=== PATIENT | female | born 1985 | race Caucasian/White ===

== ENCOUNTER 2018-12-03 15:21 | Outpatient (REF) | payer OTHER, SELFPAY ==
--- NOTE | 2018-12-03 14:15 | PAPFT_PTH ---
PATIENT: Sofía Blunt LOC: [facility] U#:[id number] AGE/SX: 33/F ROOM: RE12/03/[address]: Nicole Fink V : 1985 BED: DIS: 12/03/2018 SPEC #: [id number] RECD: 12/04/18 13:02 STATUS: MIKEY REPinky #: [id number] KAMRAN: 12/03/18 14:[address]: Nicole Fink V DEPT: [facility] Cytology RECD BY: Imani Gregory Tissues: 1 - CX/ENDOCX FOR PAP SMEARS Procedures: PAP THIN PREP/UVM Screening HPV DNA PROBE Comments: [id number]
[2018-12-03 21:41] LABS: TSH (W/Ref FT4) 2.39 uIU/mL (0.358-3.74)
== END 2018-12-03 15:41 ==
LOC: LBN 15:21
PROVIDERS: PCP Family Medicine; Visit Provider Family Medicine
DX: Z00.00 Encounter for general adult medical examination without abnormal findings (principal); I95.9 Hypotension, unspecified; Z12.4 Encounter for screening for malignant neoplasm of cervix; Z11.51 Encounter for screening for human papillomavirus (HPV); Z01.419 Encounter for gynecological examination (general) (routine) without abnormal findings
CPT/HCPCS: 88142; 84443; 87624

== ENCOUNTER 2020-06-10 20:00 | Outpatient (REF) | payer OTHER, SELFPAY ==
[2020-06-12 08:04] LABS: Chlamydia Result Negative (Negative); GC Result Negative (Negative)
== END 2020-06-10 20:20 ==
LOC: LBN 20:00
PROVIDERS: PCP Family Medicine; Visit Provider Obstetrics & Gynecology
DX: Z11.3 Encounter for screening for infections with a predominantly sexual mode of transmission (principal)
CPT/HCPCS: 87491; 87591

== ENCOUNTER 2020-07-12 04:35 | Outpatient (CLI) | payer OTHER, SELFPAY ==
[2020-07-14 11:03] LABS: Almond IgE <0.35 kU/L; Brazil Nut IgE <0.35 kU/L; Cashew IgE <0.35 kU/L; Hazelnut-Food IgE <0.35 kU/L; Peanut IgE <0.10 kU/L (<0.70); Pecan-Food IgE <0.35 kU/L; Walnut-Food IgE <0.35 kU/L
== END 2020-07-12 04:55 ==
PROVIDERS: PCP Family Medicine; Visit Provider Otolaryngology Otolaryngology/Facial Plastic Surgery
DX: E73.9 Lactose intolerance, unspecified (principal); Z91.018 Allergy to other foods; T78.1XXA Other adverse food reactions, not elsewhere classified, initial encounter
CPT/HCPCS: 36415; 86003

== ENCOUNTER 2020-08-02 03:01 | Outpatient (CLI) | payer OTHER, SELFPAY ==
[2020-08-04 19:02] LABS: Alternaria Tenuis IgE <0.35 kU/L; Aspergillus Fumigatus IgE <0.35 kU/L; Bermuda Grass IgE <0.35 kU/L; Cat Epithelium IgE <0.35 kU/L; Cladosporium IgE <0.35 kU/L; Cocklebur IgE <0.35 kU/L; Cockroach IgE <0.35 kU/L; Cottonwood IgE <0.35 kU/L; D Farinae IgE 1.22 kU/L; D Pteronyssinus IgE 1.54 kU/L; Dog Dander IgE <0.35 kU/L; Eastern Sycamore IgE <0.35 kU/L; Elm IgE <0.35 kU/L; Epicoccum purpurascens IgE <0.35 kU/L; Giant Ragweed IgE <0.35 kU/L; Lamb's Quarter IgE <0.35 kU/L; Oak IgE <0.35 kU/L; Penicillium chrysogenum IgE <0.35 kU/L; Red Sorrel IgE <0.35 kU/L; Rough Pigweed IgE <0.35 kU/L; Short Ragweed IgE <0.35 kU/L; Silver Birch IgE <0.35 kU/L; Stemphyllium IgE <0.35 kU/L; Timothy Grass IgE <0.35 kU/L; Walnut Tree IgE <0.35 kU/L; Wormwood IgE <0.35 kU/L
[2020-08-08 17:35] LABS: CLASS 0; Cedar Red IgE <0.10 kU/L (<0.35); Fusarium oxysporum/vasinfectum <0.35 kU/L (<0.35); Rhodotorula IgE <0.35 kU/L (<0.35)
== END 2020-08-02 03:02 | disposition home or self-care (01) ==
LOC: LBO 03:01
PROVIDERS: PCP Family Medicine; Visit Provider Otolaryngology Otolaryngology/Facial Plastic Surgery
DX: J30.9 Allergic rhinitis, unspecified (principal); Z01.82 Encounter for allergy testing
CPT/HCPCS: 36415; 86003

== ENCOUNTER 2021-07-19 01:56 | Outpatient (CLI) | payer OTHER, SELFPAY ==
[2021-07-19 08:07] LABS: Abs Immature Grans 0.01 10^3/uL (0.0-0.06); Absolute Basophil Count 0.06 10^3/uL (0.0-0.2); Absolute Eosinophil Count 0.07 10^3/uL (0.0-0.7); Absolute Lymphocyte Count 2.01 10^3/uL (1.2-3.4); Absolute Monocyte Count 0.41 10^3/uL (0.1-0.8); Absolute Neutrophil Count 3.77 10^3/uL (1.2-6.7); Basophils % 0.9; Eosinophils % 1.1; HCT 39.6 % (36.0-46.0); HGB 12.7 g/dL (11.2-15.7); Immature Grans % 0.2; Lymphocytes % 31.8; MCH 30.8 pg (27.0-33.0); MCHC 32.1 % (32.0-36.0); MCV 95.9 fL (80-95); MPV 9.6 fL (8.0-11.0); Monocytes % 6.5; Neutrophils % 59.5; Nucleated RBC 0 %; Platelet Count 215 10^3/uL (130-400); RBC 4.13 10^6/uL (3.93-5.22); RDW 12.6 % (11.7-14.6); RDW-SD 44.6 fL; WBC 6.33 10^3/uL (4.4-10.8)
[2021-07-19 09:15] LABS: Source Nasal/Nares
[2021-07-19 12:22] LABS: COVID-19 PCR Negative (Negative)
== END 2021-07-19 01:57 | disposition home or self-care (01) ==
LOC: LBO 01:56
PROVIDERS: PCP Family Medicine; Visit Provider Obstetrics & Gynecology
DX: Z01.818 Encounter for other preprocedural examination (principal)
CPT/HCPCS: 36415; 86850; 86900; 86901; 87635; 85025

== ENCOUNTER 2021-07-21 11:17 | Day surgery (SDC) | payer OTHER, SELFPAY ==
[2021-07-21] VITALS (9 sets, daily range): BP systolic 81–104; BP diastolic 36–75; PULSE 48–76; RESP 13–18; TEMP 36.2–36.6; O2SAT 96–100; BMI 23.8
--- NOTE | 2021-07-21 11:55 | W.ANESPRE ---
General Info Date of Service Date Performed: 07/21/21 Height: 5 ft 2 in Weight: 59 kg Body Mass Index (BMI): 23.8 Surgical Procedure: Operation Date: 07/21/21 13:10 Proposed Procedure Side Surgeon p Salpingectomy Laparoscopic & IUD Removal Bilateral Daisha Stout DO Meds Allergies and Home Medications Allergies Allergy/AdvReac Type Severity Reaction Status Date / Time No Known Allergies Allergy Unverified 07/21/21 11:42 Home Medication Medication Instructions Recorded levonorgestrel 20 mcg/24 hours (7 1 device INTRAUTERINE ONCE 07/13/20 yrs) 52 mg intrauterine device (Mirena) fiber 1 cap PO DAILY 07/20/21 Current Visit Medications: Current Medications Generic Name Dose Route Start Last Admin Trade Name Freq PRN Reason Stop Dose Admin Ringer's Solution 1,000 mls @ 125 mls/hr 07/21/21 06:00 IV 08/19/21 23:59 INFUSION AYES IV Miscellaneous Supplies 1 each 07/21/21 06:00 Iv Access IV 08/19/21 23:59 DIRECTED AYSE Sodium Chloride 0 ml 07/21/21 06:00 Normal Saline Flush 10 Ml Syr IV 08/19/21 23:59 PRN PRN Sodium Chloride 0 ml 07/21/21 06:00 Normal Saline 10 Ml Vial IJ 08/19/21 23:59 DIRECTED PRN Sterile Water 0 ml 07/21/21 06:00 Water,Injection,Sterile 10 Ml Vial IJ 08/19/21 23:59 DIRECTED PRN PFSH Active Problems Active Problems: Problem Status Onset Code Contraceptive management Z30.9 Allergic rhinitis due to allergen J30.9 Encounter for management of intrauterine contraceptive device (IUD) Z30.431 Encounter for insertion of mirena IUD Z30.430 Tobacco Smoking/Tobacco Use Status: Current-Occasional Tobacco Type: cigarettes Alcohol Alcohol Intake: never Substance Use Substance use: Never Substance use type: does not use Vital Signs and Lab Results Vital Signs Most Recent Vital Signs in EMR: Most Recent Vital Signs Temp Pulse Resp BP Pulse Ox 36.6 C 63 16 91/36 L 98 07/21/21 11:33 07/21/21 11:33 07/21/21 11:33 07/21/21 11:33 07/21/21 11:33 Point of Care Results Point of Care Results: POC- Test(urine) Negative 07/21/21 11:45 Lab Results Blood Type / Crossmatch: Patient ABO/Rh A Positive 07/19/21 Antibody Screen NEGATIVE 07/19/21 Complete Blood Count: White Blood Count 6.33 10^3/uL (4.4-10.8) 07/19/21 07:56 07/19/21 Red Blood Count 4.13 10^6/uL (3.93-5.22) 07/19/21 07:56 07/19/21 Hemoglobin 12.7 g/dL (11.2-15.7) 07/19/21 07:56 07/19/21 Hematocrit 39.6 % (36.0-46.0) 07/19/21 07:56 07/19/21 Platelet Count 215 10^3/uL (130-400) 07/19/21 07:56 07/19/21 Complete Metabolic Panel: No Data to Display Liver Function Panel: No Data to Display Coagulation Panel: No Data to Display Cardiac Panel: No Data to Display Arterial Blood Gas: No Data to Display Venous Blood Gas: No Data to Display Pancreas Panel: No Data to Display Thyroid Panel: No Data to Display Infectious Disease: Coronavirus (COVID-19)(PCR) Negative (Negative) 07/19/21 08:15 07/19/21 Coronavirus 2019 Source Nasal/Nares 07/19/21 08:15 07/19/21 Blood Cultures: No Data to Display Toxicology Panel: No Data to Display Panel: No Data to Display Anesthesia Assessment and Plan Anesthesia History Personal History: No History of Anesthesia Complications and No History of General Anesthesia Family History: No Family History of Anesthesia Complications Exercise Tolerance Exercise Tolerance: Metabolic Equivalents>4 Pertinent Negatives Pertinent Negatives: No Major Cardiovascular Symptoms or Complaints, No Major Pulmonary Symptoms or Complaints and No History of CVA/TIA Cardiac & Pulmonary Exam Cardiac Exam: Normal S1/S2 Heart Sounds Pulmonary Exam: Clear Bilateral Breath Sounds Cardiac and Pulmonary Comment:: Asthma as a child with daily inhaler use until approximately age 11 Implantable Cardiac Device Does patient have a Pacemaker or an ICD?: No Airway Exam Known Difficult Airway: No Mallampati Class: 2 Mouth Opening: Narrow (< 3cm) Thyromental Distance: Greater than 3 cm Neck Range of Motion: Full ROM Neck Circumference: Normal Teeth Condition: Normal Dentition ASA Classification ASA Score: ASA 2 Emergency Case?: No NPO Status NPO Status: NPO Clears >2 hours, Solids >8 hours Status Status: Negative HCG Anesthesia Plan Resuscitation Status: Full Code Anesthesia Technique: General Anesthesia Airway Planned: Endotracheal Tube Monitors Used: Standard Monitors
[2021-07-21] MEDS: Lactated Ringers 1,000 ML 125 ML IV ×2 (12:10→14:42)
--- NOTE | 2021-07-21 12:48 | W.PM.HP.N ---
Date of service: 07/21/21 Time of Service: 12:49 Assessment and Plan Assessment and plan (1) Contraceptive management: Status: Acute Assessment and plan: Patient undergo laparoscopic bilateral salpingectomy. Risk benefits alternatives of procedure explained patient in full informed consent was obtained. She understands the risk of infection, bleeding, injury to surrounding organs, risk of anesthesia. At the time of her procedure, we will also remove her intrauterine device. History of Present Illness Narrative: Undesired fertility, desires permanent sterilization and IUD removal Review of Systems All systems reviewed & are unremarkable except as noted in HPI and below Constitutional Constitutional: Reports as per HPI Eyes Eyes: Reports system reviewed and no additional complaints, except as documented Gastrointestinal Gastrointestinal: Reports system reviewed and no additional complaints, except as documented Genitourinary Genitourinary: Reports system reviewed and no additional complaints, except as documented Psychiatric Psychiatric: Reports system reviewed and no additional complaints, except as documented PFSH All Active Problems Contraceptive management (Acute) Allergic rhinitis due to allergen (Acute) Encounter for management of intrauterine contraceptive device (IUD) (Acute) Encounter for insertion of mirena IUD (Acute) Social History Smoking/Tobacco Use Status: Current-Occasional Tobacco Type: cigarettes Smoking risk assessment performed?: Yes Alcohol Intake: never Drug use: Never Substance use type: does not use Do you feel safe at home: Yes Do you feel safe in your relationship?: Yes Female Reproductive History Menstrual control method: progestin IUCD History History 2 Para Hx # Term Pregnancies Multiple births Hx # Pregnancies Ectopic pregnancies AB induced Hx Number of Living Children 2 AB spontaneous Meds Allergies and Home Medications Allergies Allergy/AdvReac Type Severity Reaction Status Date / Time No Known Allergies Allergy Unverified 07/21/21 11:42 Home Medications Medication Instructions Recorded Confirmed Type levonorgestrel 20 mcg/24 hours (7 1 device INTRAUTERINE ONCE 07/13/20 07/21/21 History yrs) 52 mg intrauterine device (Mirena) fiber 1 cap PO DAILY 07/20/21 07/21/21 History Exam Narrative Exam Narrative: Patient is alert and oriented, no acute distress, usual state of health HENMT Head: normal to inspection Eyes General: appearance normal, both eyes and all related structures Neck Neck: normal visual inspection Thyroid: thyroid normal Resp Auscultation: clear to auscultation bilaterally, no crackles, no rales, no rhonchi and no wheezes Cardio Rate: regular rate Rhythm: regular rhythm Heart Sounds: S1 normal, S2 normal and no murmurs GI Palpation: soft, not firm and no guarding Extrem General: normal to inspection and no clubbing, cyanosis or edema Psych Appearance: grossly normal Mental Status: mental status grossly normal Speech and Movement: speech and movement normal Mood: congruent mood Attitude: cooperative Thought Process: normal Results Last Vital Signs Temp 97.9 F 07/21/21 11:33 Pulse 63 07/21/21 11:33 Resp 16 07/21/21 11:33 BP 91/36 L 07/21/21 11:33 Pulse Ox 98 07/21/21 11:33
[2021-07-21] MEDS: Bupivacaine 0.25% Pres-Free 30 ML VIAL (13:20)
--- NOTE | 2021-07-21 13:32 | FALL_PTH ---
PATIENT: Sofía Blunt LOC: [facility] U#:[id number] AGE/SX: 35/F ROOM: RE07/21/[address]: Daisha Stout DO : 1985 BED: DIS: 07/21/2021 SPEC #: [id number] RECD: 07/21/21 17:12 STATUS: MIKEY [facility] #: [id number] KAMRAN: 07/21/21 13:[address]: Daisha Stout DEPT: Surgical Specimen RECD BY: Imani Gregory ENTERED: 07/21/21 17:13 SP TYPE: Fall OTHR DR: Nicole Fink V Tissues: 1 - FALLOPIAN TUBE (STERILIZATION) 2 - FALLOPIAN TUBE (STERILIZATION) Procedures: GROSS AND MICRO LEVEL 2 Comments: [id number]
--- NOTE | 2021-07-21 13:57 | W.PM.OP ---
Date of service: 07/21/21 Time of Service: 13:57 Operative Note Operative Note DATE OF PROCEDURE: 07/21/21 PRE-OP DIAGNOSIS: Undesired fertility, IUD in situ Same PROCEDURE: Removal of intrauterine device, laparoscopic bilateral salpingectomy SURGEON: Daisha Stout ASSISTING SURGEON: Court Morrison ANESTHESIA TYPE: General LMA/ETT Refer to Anesthesia Record ESTIMATED BLOOD LOSS: 10 PATHOLOGY: other (Right fallopian tube, left fallopian tube) COMPLICATIONS: None Patient was transported to: PACU Patient's condition: stable Implants: None Indications: Undesired fertility Findings: Normal tubes, ovaries, uterus. Small right ovarian cyst Procedure Description: Patient was taken to the operating room after full informed consent was obtained. She was placed in the dorsal supine position and endotracheal intubation performed for the administration of general anesthesia with ease. She was then placed in the modified dorsolithotomy position, and prepped and draped in the usual sterile fashion. Bladder was drained for approximately 200 cc of clear yellow urine. Speculum was inserted into the vaginal vault. No IUD string was apparent, and a Chantelle clamp was used to grasp the IUD from the cervical canal. Once IUD was out, single-tooth tenaculum used to grasp the anterior lip of the cervix and cervical os dilated the point that a ZUMI uterine manipulator could be placed. At this point tenaculum and speculum were both removed and attention was turned to the abdomen. At this point a small infraumbilical skin incision was made after infiltration of quarter percent Marcaine. The anterior ketty wall was elevated and with a varies needle, pneumoperitoneum created to a maximum pressure of 15 mmHg. At this point under direct visualization a 10 mm sleeve and trocar were placed. Abdomen inspected and found to be atraumatic. A second and third right and left lower quadrant trocar site were placed after infiltration of quarter percent Marcaine under direct visualization. This point the uterus was elevated. The left fallopian tube was elevated and cautery transected. Portions of the fallopian tube were removed through the 10 mm port. There is noted to be approximately 3 cm paratubal cyst which was removed at the same time. Similar procedure was carried out on the right fallopian tube and removed from the abdomen through the 10 mm port. At this point section of pedicles were noted to have good hemostasis. And at this point the procedure was terminated. Pneumoperitoneum released. 5 mm port along with 10 millimeter port were removed. Fascial incision was closed using 0 Vicryl suture in a simple interrupted fashion. Skin edges were reapproximated with 4-0 undyed Monocryl and Steri's were placed. Sterile bandages were placed. The ZUMI uterine manipulator was then removed from the uterus and the patient was returned to the dorsal supine position. She awoke from anesthesia with ease. Complications: None apparent Fluids: Crystalloid per anesthesia Specimens: 1 left fallopian tube, 2 right fallopian tube
[2021-07-21] MEDS: fentaNYL 100 MCG/2 ML VIAL IVP ×2 (14:15→14:25)
[2021-07-21] MEDS: ePHEDrine 25 MG/5 ML Syringe IVP ×2 (14:40→14:50)
--- NOTE | 2021-07-21 16:01 | W.ANESPOSTOP ---
Postoperative Evaluation Date, Time and Location Date Performed: 07/21/21 Time Performed: 16:01 Patient Location: Day Surgery Unit Vital Signs Most Recent Imported Vital Signs: Most Recent Vital Signs Temp Pulse Resp BP Pulse Ox 36.3 C L 66 16 104/75 100 07/21/21 15:39 07/21/21 15:39 07/21/21 15:39 07/21/21 15:39 07/21/21 15:39 Pain Score Most Recent Pain Score: Most Recent Pain Score Pain Level 3 07/21/21 15:39 Assessment Mental Status: Awake (Alert & Oriented to Patient Baseline) Airway and Respiratory Function: Patent airway with normal (patient baseline) respiratory exam Cardiovascular Function: Hemodynamically Stable Hydration Status: Adequately Hydrated Nausea & Vomiting: No Nausea or Vomiting Pain: Pain is tolerable per patient Peripheral Nerve Block: Patient did not receive a nerve block
== END 2021-07-21 16:28 | disposition home or self-care (01) ==
PROVIDERS: PCP Family Medicine; Visit Provider Obstetrics & Gynecology
PROC: (CPT 58661; principal; 2021-07-21 13:00)
DX: Z30.2 Encounter for sterilization (principal); N83.8 Other noninflammatory disorders of ovary, fallopian tube and broad ligament; F17.210 Nicotine dependence, cigarettes, uncomplicated; Z30.432 Encounter for removal of intrauterine contraceptive device
CPT/HCPCS: 58661; 58301; 81025; 88302; J1100; J1885; J2001; J2405; J2704; J3010

== ENCOUNTER 2022-09-25 14:53 | Outpatient (REF) | payer OTHER, SELFPAY ==
--- NOTE | 2022-09-25 14:40 | PAPFT_PTH ---
PATIENT: Sofía lBunt LOC: [facility] U#:[id number] AGE/SX: 36/F ROOM: RE09/25/[address]: Daisha Stout DO : 1985 BED: DIS: 09/25/2022 SPEC #: [id number] RECD: 09/25/22 18:17 STATUS: MIKEY REQ #: [id number] KAMRAN: 09/25/22 14:[address]: Daisha Stout DEPT: [facility] Cytology RECD BY: Imani Gregory ENTERED: 09/25/22 18:18 SP TYPE: PAPFT OTHR DR: Nicole Fink V Tissues: 1 - CX/ENDOCX FOR PAP SMEARS Procedures: PAP THIN PREP/UVM Screening HPV DNA PROBE Comments: [id number] (HPV 16 & 18/45)
== END 2022-09-25 14:54 | disposition home or self-care (01) ==
LOC: LBN 14:53
PROVIDERS: PCP Family Medicine; Visit Provider Obstetrics & Gynecology
DX: Z12.4 Encounter for screening for malignant neoplasm of cervix (principal); Z11.51 Encounter for screening for human papillomavirus (HPV); R87.810 Cervical high risk human papillomavirus (HPV) DNA test positive
CPT/HCPCS: 88142; 87624

== ENCOUNTER 2023-11-02 16:44 | Outpatient (REF) | payer OTHER, SELFPAY ==
--- NOTE | 2023-11-02 15:00 | PAPFT_PTH ---
PATIENT: Sofía Blunt LOC: [facility] U#:[id number] AGE/SX: 37/F ROOM: RE11/02/[address]: Daisha Stout DO : 1985 BED: DIS: 11/02/2023 SPEC #: [id number] RECD: 11/02/23 17:54 STATUS: MIKEY REQ #: [id number] KAMRAN: 11/02/23 15:[address]: Daisha Stout DEPT: [facility] Cytology RECD BY: Imani Gregory ENTERED: 11/02/23 17:54 SP TYPE: PAPFT OTHR DR: Nicole Fink V Tissues: 1 - CX/ENDOCX FOR PAP SMEARS Procedures: PAP THIN PREP/UVM Screening HPV DNA PROBE Comments: [id number] (HPV 16 & 18/45)
== END 2023-11-02 16:45 | disposition home or self-care (01) ==
LOC: LBN 16:44
PROVIDERS: PCP Family Medicine; Visit Provider Obstetrics & Gynecology
DX: Z12.4 Encounter for screening for malignant neoplasm of cervix (principal)
CPT/HCPCS: 88142; 87624

== ENCOUNTER 2023-12-14 09:48 | Outpatient (REF) | payer OTHER, SELFPAY ==
--- NOTE | 2023-12-14 09:30 | ENDO_PTH ---
PATIENT: Sofía Blunt LOC: [facility] U#:[id number] AGE/SX: 38/F ROOM: RE12/14/[address]: Daisha Stout DO : 1985 BED: DIS: 12/14/2023 SPEC #: [id number] RECD: 12/17/23 13:17 STATUS: MIKEY RE #: [id number] KAMRAN: 12/14/23 09:[address]: Daisha Stout DEPT: Surgical Specimen RECD BY: Imani Gregory ENTERED: 12/17/23 13:17 SP TYPE: Endo OTHR DR: Nicole Fink V Tissues: 1 - ENDOCERVICAL BX/CURRETTE 2 - CERVICAL BIOPSY Procedures: GROSS AND MICRO LEVEL 4 IMMUNOPEROXIDASE STAIN Comments: [id number]
== END 2023-12-14 09:49 | disposition home or self-care (01) ==
LOC: LBN 09:48
PROVIDERS: PCP Family Medicine; Visit Provider Obstetrics & Gynecology
DX: N72 Inflammatory disease of cervix uteri (principal); D26.0 Other benign neoplasm of cervix uteri
CPT/HCPCS: 88305; 88361

== ENCOUNTER 2024-11-27 15:34 | Outpatient (REF) | payer OTHER, SELFPAY ==
--- NOTE | 2024-11-27 15:30 | PAPFT_PTH ---
PATIENT: Sofía Blunt LOC: [facility] U#:[id number] AGE/SX: 39/F ROOM: RE11/27/[address]: Daisha Stout DO : 1985 BED: DIS: 11/27/2024 SPEC #: [id number] RECD: 11/27/24 17:37 STATUS: MIKEY REQ #: [id number] KAMRAN: 11/27/24 15:[address]: Daisha Stout DEPT: [facility] Cytology RECD BY: Imani Gregory ENTERED: 11/27/24 17:37 SP TYPE: PAPFT OTHR DR: Nicole Fink V Tissues: 1 - CX/ENDOCX FOR PAP SMEARS Procedures: PAP THIN PREP/UVM Screening HPV DNA PROBE Comments: [id number] (HPV 16 & 18/45)
== END 2024-11-27 15:35 | disposition home or self-care (01) ==
LOC: LBN 15:34
PROVIDERS: PCP Family Medicine; Visit Provider Obstetrics & Gynecology
DX: Z11.51 Encounter for screening for human papillomavirus (HPV) (principal); Z01.419 Encounter for gynecological examination (general) (routine) without abnormal findings; R87.620 Atypical squamous cells of undetermined significance on cytologic smear of vagina (ASC-US)
CPT/HCPCS: 88142; 87624

== ENCOUNTER 2024-12-25 17:52 | Outpatient (REF) | payer OTHER, SELFPAY ==
--- NOTE | 2024-12-25 16:00 | ENDO_PTH ---
PATIENT: Sofía Blunt LOC: [facility] U#:[id number] AGE/SX: 39/F ROOM: RE12/25/[address]: Daisha Stout DO : 1985 BED: DIS: 12/25/2024 SPEC #: [id number] RECD: 12/25/24 18:15 STATUS: MIKEY REQ #: [id number] KAMRAN: 12/25/24 16:[address]: Daisha Stout DEPT: Surgical Specimen RECD BY: Imani Gregory ENTERED: 12/25/24 18:15 SP TYPE: Endo OTHR DR: Nicole Fink V Tissues: 1 - ENDOCERVICAL BX/CURRETTE Procedures: GROSS AND MICRO LEVEL 4 Comments: [id number]
== END 2024-12-25 17:53 | disposition home or self-care (01) ==
LOC: LBN 17:52
PROVIDERS: PCP Family Medicine; Visit Provider Obstetrics & Gynecology
DX: D26.0 Other benign neoplasm of cervix uteri (principal)
CPT/HCPCS: 88305